=== PATIENT | female | born 1990 | race Caucasian/White ===

== ENCOUNTER 2017-09-22 16:02 | Inpatient (IN) | payer OTHER ==
[2017-09-22] MEDS ORDERED: LACTATED RINGERS 1,000 ML IV ONE (17:30)
[2017-09-22] MEDS ORDERED: PEPCID IV ONE (18:11)
[2017-09-22] MEDS ORDERED: REGLAN IV ONE (18:11)
[2017-09-22] MEDS ORDERED: BICITRA PO ONE (18:11)
--- NOTE | 2017-09-22 18:16 | History and Physical Report ---
History of Present Illness Date of examination: 09/22/17 Date of admission: 09/22/17 Chief complaint: Fluid leakage and contractions. History of present illness: benitez is 27 year old , LMP 12/26/16, EDC 10/02/17 at 38 weeks and 4 days gestation who presented to the triage complaining of having contractions, mild bleeding, and fluid leakage since 2 pm today. She goes to [facility] for PNC. ; tracing has been CAT 1, contractions every 2-3 mins. Cervix: 2 cm/50 %/-2, + blood. 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 ) Social history: no significant social history - Obstetrical History Expected Date of Delivery: 10/02/17 Actual Gestation: 38 Week(s) 4 Day(s) : 3 Para: 1 Number of Living Children: 1 #1 Gender: Female year: ([birth year]) Birthweight: 4.181 kg Method of Delivery: Gestational age at delivery: 40 Complications: other (failure to dilate) Medications and Allergies Allergies Allergy/AdvReac Type Severity Reaction Status Date / Time No Known Allergies Allergy Verified 05/25/13 09:57 Home Medications Medication Instructions Recorded Confirmed Last Taken Type Vits96/Iron Fum/Folic 1 each PO QDAY 02/16/13 09/21/13 09/20/13 History [ Tablet] 1 Ferrous Sulfate [Feosol 325 MG tab] 325 mg PO BID #60 tablet 09/22/13 Unknown Rx HYDROcodone/APAP 5-325 [[place] 1 each PO Q6HR PRN #30 tablet 09/22/13 Unknown Rx 5/325 mg] Ibuprofen [Motrin] 800 mg PO Q8H PRN #30 tablet 09/22/13 Unknown Rx Rqm434/Iron Fum/Folic/Docusate 1 each PO QDAY #30 tablet 09/22/13 Unknown Rx [ 19 Tablet] Active Meds: Active Medications Lactated Ringer's (Lactated Ringers) 1,000 mls @ 999 mls/hr IV BOLUS ONE Stop: 09/22/17 18:30 - Vital Signs Vital signs: Vital Signs Pulse Pulse Ox 113 H 97 09/22/17 16:53 09/22/17 16:53 Temp Pulse Resp BP Pulse Ox 109 H 98 09/22/17 17:43 09/22/17 17:43 - Physical Exam Cardiovascular: Normal S1, Normal S2 Lungs: Positive: Clear to auscultation Vulva: both: normal Uterus: Positive: enlarged Deep Tendon Reflex Grade: Normal +2 - Obstetrical FHR: category 1 Uterine Contraction Monitor Mode: External Cervical Dilatation: 2 Cervical Effacement Percentage: 50 station: -2 Uterine Contraction Pattern: Irregular Uterine Contraction Intensity: Strong/Firm Results All other labs normal. Assessment and Plan - Patient Problems (1) 38 weeks gestation of Current Visit: Yes Status: Acute (2) Active labor Current Visit: Yes Status: Acute Plan to address problem: Admit to labor floor. IV fluid. Keep NPO Routine admitting labs. Patient was counselled for repeat C/section. Risks and benefits of the procedure were discussed with her such as infection, hemorrhage requiring blood transfusion, injury to the bowel, bladder and blood vessels. She expressed understanding, her questions were answered, she gave her informed consent. Anesthesia was notified. Pt is sql application developer to OR. (3) Previous section Current Visit: Yes Status: Acute (4) SROM (spontaneous rupture of membranes) Current Visit: Yes Status: Acute (5) Rubella non-immune status, antepartum Current Visit: Yes Status: Acute (6) Declines (vaginal after ) trial Current Visit: Yes Status: Acute (7) Anemia Current Visit: Yes Status: Acute Qualifiers: Anemia type: iron deficiency
[2017-09-22] MEDS ORDERED: ASTRAMORPH PF 10MG/10ML ONE (18:24)
[2017-09-22] MEDS: LACTATED RINGERS 1,000 ML IV SCH (18:39)
[2017-09-22] MEDS ORDERED: DILAUDID IV PRN ×2 (18:42)
[2017-09-22] MEDS ORDERED: PHENERGAN PO PRN (18:42)
[2017-09-22] MEDS ORDERED: ZOFRAN IV PRN ×2 (18:42→20:37)
[2017-09-22] MEDS ORDERED: NARCAN 0.4 MG/1 ML IV PRN ×2 (18:42→20:37)
[2017-09-22] MEDS ORDERED: PHENERGAN PR PRN (18:42)
--- NOTE | 2017-09-22 18:42 | Anesthesia Consultation ---
Anesthesia Consult and Med Hx Date of service: 09/22/17 - Airway Anesthetic Teeth Evaluation: Good ROM Head & Neck: Adequate Mental/Hyoid Distance: Adequate Mallampati Class: Class II Intubation Access Assessment: Probably Good - Pulmonary Exam CTA: Yes - Cardiac Exam Cardiac Exam: RRR - Pre-Operative Health Status ASA Pre-Surgery Classification: ASA2 Proposed Anesthetic Plan: Epidural, Spinal - Pulmonary Hx Smoking: No Hx Asthma: No COPD: No Hx Pneumonia: No - Cardiovascular System Hx Hypertension: No Hx Heart Attack/AMI: No Hx Valvular Heart Disease: No - Central Nervous System Hx Seizures: No CVA: No Hx Psychiatric Problems: No - Endocrine Hx Renal Disease: Yes (kidney stones) Hx End Stage Renal Disease: No Hx Liver Disease: No Hx Hypothyroidism: No Hx Hyperthyroidism: No - Hematic Hx Anemia: No Hx Sickle Cell Disease: No - Other Systems Hx Alcohol Use: No Hx Substance Use: No Hx Cancer: No
--- NOTE | 2017-09-22 18:43 | Anesthesia Day of Surgery ---
Anesthesia Day of Surgery - Day of Surgery Patient Examined: Yes Patient H&P Reviewed: Yes Patient is NPO: No (Ate at 1300 hours)
[2017-09-22 18:48] LABS: Basophils % (Auto) 0.3 % (0.0-1.8); Eosinophils # (Auto) 0.1 K/mm3 (0.0-0.4); Eosinophils % (Auto) 0.6 % (0.0-4.3); Hematocrit 30.9 % (30.3-42.9); Hemoglobin 9.7 gm/dl (10.1-14.3); Lymphocytes # (Auto) 1.8 K/mm3 (1.2-5.4); Lymphocytes % (Auto) 16.8 % (13.4-35.0); Mean Corpuscular HGB Conc 31 % (30-34); Mean Corpuscular Volume 73 fl (79-97); Monocytes # (Auto) 0.9 K/mm3 (0.0-0.8); Monocytes % (Auto) 8.7 % (0.0-7.3); Platelet Count 201 K/mm3 (140-440); Red Blood Count 4.23 M/mm3 (3.65-5.03); Red Cell Distribution Width 17.5 % (13.2-15.2)
[2017-09-22 18:52] LABS: Mean Corpuscular Hemoglobin 23 pg (28-32)
[2017-09-22] MEDS ORDERED: NEO SYNEPHRINE/NS Syringe(OR USE) IV ONE (19:00)
[2017-09-22] MEDS ORDERED: PITOCin/NS 20 UNIT/1000ML DRIP 20 UNITS/1,000 ML BAG IV SCH ×2 (19:00→21:00)
[2017-09-22] MEDS ORDERED: ANCEF/STERILE WATER 2 GM/20 ML 2 GM/20 ML SYRINGE IV NR (19:00)
[2017-09-22] MEDS ORDERED: SODIUM CHLORIDE FLUSH SYRINGE 10 ML IV NR (19:00)
[2017-09-22] MEDS ORDERED: NACL 0.9% IR ONE (19:00)
[2017-09-22] MEDS ORDERED: WATER FOR IRRIG STERILE IR ONE (19:00)
[2017-09-22] MEDS ORDERED: METHERGINE IM ONE (20:06)
[2017-09-22] MEDS ORDERED: ZOFRAN ONE ×2 (20:28)
[2017-09-22] MEDS ORDERED: MORPHINE IV PRN (20:37)
[2017-09-22] MEDS ORDERED: MILK OF MAGNESIA PO PRN (20:37)
[2017-09-22] MEDS ORDERED: SENOKOT PO PRN (20:37)
[2017-09-22] MEDS ORDERED: LANSINOH TP PRN (20:37)
[2017-09-22] MEDS ORDERED: TYLENOL PO PRN (20:37)
[2017-09-22] MEDS ORDERED: TUCKS PAD TP PRN (20:37)
[2017-09-22] MEDS ORDERED: MYLICON PO PRN (20:37)
[2017-09-22] MEDS ORDERED: TORADOL IV PRN ×2 (20:37)
--- NOTE | 2017-09-22 20:50 | Operative Report ---
Operative Report Operative Report: Preoperative: 1. SIUP at 38 weeks and 4 days gestation in active labor. 2. Previous section. 3. Declined . Postoperative diagnosis: Same as preoperative diagnosis. Procedure: Repeat low-transverse section. Surgeon: Dr. Wakefield Burring Machine Operator: none Anesthesia: Epidural IVF: 1500 cc EBL: 400 cc Urine: 100 cc clear Complications: none Intraoperative findings: 1. Female found in an KRISTIN position, delivered at 7:59 PM, Apgars 8 at 1 minutes and 9 at 5 minutes, weight 8 lbs. 9 oz. 2. Normal fallopian tubes and ovaries bilaterally. Procedure details: The risks, benefits, and alternatives of the procedure were discussed in detail with the patient which included but not limited to the risk of infection, hemorrhage requiring blood transfusion, injury to the bowel or bladder and blood vessels. The patient expressed understanding, her questions were answered , and she gave informed consent. The patient was taken to the operating room with an IV fluid infusion Ringer's lactate. In the operating room, she was placed in a sitting position and given epidural anesthesia. Then, she was placed in a dorsal supine position with a leftward tilt. Venodyne boots and Machado catheter was placed. The abdomen was washed and she was prepared and draped in the usual sterile fashion. After confirming adequate epidural anesthesia, a Pfannenstiel skin incision was made in the lower abdomen at the level of the previous scar about 2 cm above the pubic symphysis using the scalpel. This incision was carried down to the underlying fascia using the Bovie. The fascia was opened bilaterally in a curvylinear fashion using the Bovie. Two Straight Kocker clamps were used to grasp the upper edge of the fascia from which the underlying rectus abdominis muscle was dissected off using the Bovie. A similar procedure was done with the lower edge of the fascia to dissect the underlying rectus abdominis muscle. The muscle was bluntly from the midline by pulling. The parietal peritoneum was grasped with 2 hemostat clamps and entered sharply using Metzenbaum scissors. A quick survey of the anatomy revealed a gravid uterus, normal fallopian tubes and ovaries bilaterally. A bladder flap was created. Lewis'O retractor was placed at the incision for proper visualization. A low transverse incision was made in the lower uterine segment using the scalpel and extended bilaterally using bandage scissors. The amniotic sac was ruptured and there was copious amount of clear amniotic fluids. The was found in an KRISTIN position. The head was delivered atraumatically followed by the rest of the body at 7:59 PM. The cord was clamped 2 and cut and the infant was handed off to the waiting office executive. The was a female, Apgars were 8 at 1 minute and 9 at 5 minutes, weight 8 lbs. 9 oz. Cord blood was collected. The placenta was delivered manually and it was complete with a three-vessel cord. The uterine cavity was cleaned of clots and debris using dry lap sponges. The uterine incision was repaired in a running locked fashion using 0 Vicryl sutures. A second layer of imbrication was placed. The gutters were cleaned of clot and debris using dry lap sponges. After confirming adequate hemostasis, the instruments were removed from the abdomen or cavity. The fascia was closed in a running fashion using 0 Vicryl sutures. The skin was closed with jeremiah. Sterile dressing was placed. The count of laps, needles, and sponges and instrument were correct 2. The patient tolerated the procedure well. She was taken to the recovery room in a stable condition.
[2017-09-22] MEDS ORDERED: SODIUM CHLORIDE FLUSH SYRINGE 10 ML IV PRN (21:00)
[2017-09-23] MEDS: LACTATED RINGERS 1,000 ML IV SCH (00:13)
[2017-09-23 08:29] LABS: Hematocrit 27.2 % (30.3-42.9); Hemoglobin 8.4 gm/dl (10.1-14.3)
--- NOTE | 2017-09-23 10:00 | Progress Note ---
Assessment and Plan A: POD#1 s/p Repeat C/S Stable Pain well controlled P: Routine PP/PO care Encouraged ambulation Subjective - Subjective Date of service: 09/23/17 Principal diagnosis: Repeat C/S Patient reports: appetite normal, voiding normally, pain well controlled, flatus , ambulating normally, no bowel movement : doing well, bottle feeding Objective - Vital Signs Latest vital signs: Vital Signs Temp Pulse Resp BP BP Pulse Ox 09/23/17 03:00 97.7 F 80 18 107/66 09/22/17 22:40 98 F 89 18 122/82 09/22/17 22:00 98.2 F 91 H 15 123/80 98 09/22/17 21:45 76 16 114/72 97 09/22/17 21:30 87 15 117/73 97 09/22/17 21:15 83 15 114/74 97 09/22/17 21:01 89 12 111/65 99 09/22/17 20:55 90 17 118/74 99 09/22/17 20:53 98.1 F 92 H 17 111/74 99 09/22/17 17:43 109 H 98 09/22/17 17:38 111 H 98 09/22/17 17:33 102 H 96 09/22/17 17:28 108 H 98 09/22/17 17:23 122 H 98 09/22/17 17:18 111 H 97 09/22/17 17:13 108 H 98 09/22/17 17:08 102 H 98 09/22/17 17:03 111 H 98 09/22/17 16:58 108 H 96 09/22/17 16:53 113 H 97 09/22/17 16:40 98.4 F 104 H 20 121/68 98 Intake and Output 09/22/17 09/23/17 09/23/17 23:59 07:59 15:59 Intake Total 3050 180 Output Total 400 450 Balance 2650 -270 Intake: IV 3050 Lactated Ringers 1,000 ml 1000 @ 2250 mls/hr IV PREOP [facility] Rx#:[id number] Intake, Free Water 180 Output: Urine 400 450 Indwelling Catheter 450 Uretheral ([place]) 100 Other: Total, Output Amount 450 Weight 74.843 kg Estimated Blood Loss 400 - Exam Breasts: Present: normal Cardiovascular: Present: Regular rate, Normal S1, Normal S2 Lungs: Present: Clear to auscultation, Normal air movement Abdomen: Present: normal appearance, soft, normal bowel sounds Vulva: both: normal Uterus: Present: normal, firm, fundal height at umbilicus Extremities: Present: normal Deep Tendon Reflex Grade: Normal +2 Incision: Present: normal, dry, intact, dressed (Pressure dressing intact, no drainage) - Labs Labs: Abnormal lab results 09/22/17 09/23/17 Range/Units 18:04 08:03 Hgb 9.7 L 8.4 L (10.1-14.3) gm/dl Hct 27.2 L (30.3-42.9) % MCV 73 L (79-97) fl MCH 23 L (28-32) pg RDW 17.5 H (13.2-15.2) % [place] % (Auto) 8.7 H (0.0-7.3) % [place] # 0.9 H (0.0-0.8) K/mm3 Seg Neutrophils % 73.6 H (40.0-70.0) % Seg Neutrophils # 7.9 H (1.8-7.7) K/mm3
[2017-09-23] MEDS: FEOSOL PO SCH (11:10)
[2017-09-23] MEDS: PRENATAL VITAMIN PO SCH (11:10)
[2017-09-23] MEDS: BENADRYL PO PRN ×2 (11:20→22:23)
[2017-09-23] MEDS: PERCOCET 5/325 PO PRN ×2 (11:37→18:09)
[2017-09-23] MEDS ORDERED: M-M-R II VACCINE SUB-Q ONE (20:38)
[2017-09-23] MEDS: MOTRIN PO PRN (22:23)
[2017-09-24] MEDS: MOTRIN PO PRN ×3 (04:31→19:05)
[2017-09-24] MEDS: PERCOCET 5/325 PO PRN ×3 (04:32→19:05)
--- NOTE | 2017-09-24 09:03 | Progress Note ---
Assessment and Plan - Patient Problems (1) S/P repeat low transverse Current Visit: Yes Status: Acute Plan to address problem: POD 2 - stable Continue routine postop orders D/C to home later today F/U at [facility] in 1 week for incision check/jeremiah removal (2) Anemia of Current Visit: Yes Status: Acute Plan to address problem: Asymptomatic Continue iron therapy Subjective - Subjective Date of service: 09/24/17 Principal diagnosis: S/P Repeat Low Transverse C/S Patient reports: appetite normal, voiding normally, pain well controlled, flatus , ambulating normally, no bowel movement [place]: doing well, bottle feeding Objective - Vital Signs Latest vital signs: Vital Signs Temp Pulse Resp BP BP Pulse Ox 09/24/17 04:31 20 09/24/17 00:49 98.5 F 103 H 20 106/51 09/23/17 20:13 98.5 F 98 H 18 110/70 09/23/17 15:54 98.3 F 86 16 98/61 100 09/23/17 11:22 97.8 F 94 H 20 95/63 98 Intake and Output 09/23/17 09/24/17 09/24/17 23:59 07:59 15:59 Intake Total 240 720 Output Total 1650 Balance -1410 720 Intake: Oral 240 Intake, Free Water 720 Output: Urine 1650 Void 1650 Other: Total, Intake Amount 240 Total, Output Amount 750 # Voids Void 1 2 - Exam Cardiovascular: Present: Regular rate, Normal S1, Normal S2, No murmurs Lungs: Present: Clear to auscultation, Normal air movement Abdomen: Present: normal appearance, soft Vulva: both: normal Uterus: Present: normal, firm, fundal height above umbilicus Extremities: Present: normal Deep Tendon Reflex Grade: Normal +2 Incision: Present: normal, dry, intact, other (jeremiah in place)
--- NOTE | 2017-09-24 09:15 | Discharge Summary ---
Providers - Providers Date of Admission: 09/22/17 16:03 Date of discharge: 09/24/17 Attending physician: IRA HAYNES MD Primary care physician: IRA HAYNES MD Hospitalization Reason for admission: active labor, IUP at term Delivery: Procedure: repeat low transverse Episiotomy: none Laceration: none Incision: normal, dry, intact, other (jeremiah in place) Other procedures: none complications: none Discharge diagnosis: IUP at term delivered [place] baby: female Hospital course: Uncomplicated Condition at discharge: Stable Disposition: DC-01 TO HOME OR SELFCARE - Discharge Diagnoses (1) S/P repeat low transverse Status: Acute (2) Anemia of Status: Acute Comment: asymptomatic. Continue iron therapy Plan - Discharge Medications Prescriptions: Ferrous Sulfate [Feosol 325 MG tab] 325 mg PO QDAY #30 tablet - Provider Discharge Summary Activity: routine, no sex for 6 weeks, no heavy lifting 4 weeks, no strenuous exercise Diet: routine Instructions: routine Additional instructions: [] Smoking cessation referral if applicable(refer to patient education folder for contact #) [] Refer to [facility] Booklet Call your doctor immediately for: * Fever > 100.5 * Heavy vaginal bleeding ( >1 pad per hour) * Severe persistent headache * Shortness of breath * Reddened, hot, painful area to leg or breast * Drainage or odor from incision. * Keep incision clean and dry at all times and follow doctor's instructions regarding bathing/showering - Follow up plan Follow up: IRA HAYNES MD [Primary Care Provider] - 7 Days (Follow up at [facility] in 1 week for insicion check/jeremiah removal)
[2017-09-24] MEDS: FEOSOL PO SCH (10:10)
[2017-09-24] MEDS: PRENATAL VITAMIN PO SCH (10:10)
[2017-09-24 18:48] VITALS: BP 106/62
[2017-09-24] MEDS ORDERED: M-M-R II VACCINE SUB-Q ONE (19:15)
== END 2017-09-24 20:30 | disposition home or self-care (01) | DRG 766 ==
LOC: TRG 16:02 → APU 16:03 → TRG 16:04 → OB 22:41
PROVIDERS: ADMIT Obstetrics & Gynecology; ATTEND Obstetrics & Gynecology
PROC: 10D00Z1 Extraction of Products of Conception, Low, Open Approach (ICD-10-PCS; principal; 2017-09-22)
PROC: 3E0234Z Introduction of Serum, Toxoid and Vaccine into Muscle, Percutaneous Approach (ICD-10-PCS; 2017-09-24)
DX: O34.211 Maternal care for low transverse scar from previous cesarean delivery (principal); Z3A.38 38 weeks gestation of pregnancy; Z37.0 Single live birth; Z23 Encounter for immunization; Z87.442 Personal history of urinary calculi; O99.02 Anemia complicating childbirth; D64.9 Anemia, unspecified
CPT/HCPCS: 36415; 85014; 85018; 85025; 86850; 86900; 86901; 90471; 90707; A6250; J0690; J1885; J2210; J2274; J2370; J2405; J2590; J2765; J7120